=== PATIENT | male | born 1945 | race Caucasian/White ===

== ENCOUNTER → 2018-06-06 15:28 | Outpatient (CLI) | payer MEDICARE, OTHER, SELFPAY ==
--- NOTE | 2018-06-06 | DI.RAD.S_ITS ---
PROCEDURE: XR CHEST 2V INDICATIONS: COUGH TECHNIQUE: 2 views of the chest were acquired. COMPARISON: [facility], CR, XR CHEST 2VW, 09/13/2016, 15:51. FINDINGS: Surgical changes and devices: None. Lungs and pleura: There is a left basilar scars or atelectasis. No pleural effusions or pneumothorax. Mediastinum: Mediastinal contours are normal. Heart size is normal. Bones and chest wall: No suspicious bony abnormalities. Soft tissues appear unremarkable. Scoliosis. Degenerative changes seen thoracic and upper lumbar spine. 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 IMPRESSION: Left basilar scars or atelectasis. Dictated by: Rey Alejandro M.D. on 06/06/2018 at 16:51 Approved by: Rey Alejandro M.D. on 06/06/2018 at 16:52
== END ==
PROVIDERS: PCP Family Medicine; Visit Provider Family Medicine
DX: J15.9 Unspecified bacterial pneumonia (principal); R05 Cough
CPT/HCPCS: 71046

== ENCOUNTER → 2018-06-28 15:23 | Outpatient (CLI) | payer MEDICARE, OTHER, SELFPAY ==
--- NOTE | 2018-06-28 | DI.RAD.S_ITS ---
PROCEDURE: XR CHEST 2V INDICATIONS: PNEUMONIA TECHNIQUE: 2 views of the chest were acquired. COMPARISON: [facility], CR, XR CHEST 2V, 06/06/2018, 15:36. FINDINGS: Surgical changes and devices: None. Lungs and pleura: Lungs are clear. No pleural effusions or pneumothorax. Mediastinum: Mediastinal contours are normal. Heart size is normal. Bones and chest wall: No suspicious bony abnormalities. Soft tissues appear unremarkable. IMPRESSION: Normal for age, source of current pneumonia symptoms is not seen. Dictated by: Ankush Gary M.D. on 06/28/2018 at 15:57 Approved by: Ankush Gary M.D. on 06/28/2018 at 15:57
== END ==
PROVIDERS: Family Provider Family Medicine; PCP Family Medicine; Visit Provider Family Medicine
DX: J18.9 Pneumonia, unspecified organism (principal)
CPT/HCPCS: 71046

== ENCOUNTER 2019-05-18 13:37 | Emergency (ER) | payer MEDICARE, OTHER, SELFPAY ==
[2019-05-18 14:04] VITALS: BP 130/75; PULSE 68; RESP 18; TEMP 36.8; O2SAT 96; BMI 25.1
--- NOTE | 2019-05-18 14:11 | DI.US.S_ITS ---
PROCEDURE: US PERIPH VENOUS LOW EXTREM LT INDICATIONS: LEFT FOOT SWELLING NO INJURY TECHNIQUE: Real-time imaging, as well as color and pulse Doppler interrogation, were performed of the lower extremity deep veins from the inguinal ligament to the popliteal fossa. COMPARISON: None. FINDINGS: The common femoral, femoral and popliteal veins are normally compressible, and free of intraluminal thrombus. Color and pulse Doppler demonstrate normal phasic intraluminal flow. There is normal augmentation response to distal compression maneuver. Targeted sonographic imaging of the foot at the site of the patient's area of concern demonstrates fluid surrounding one of the tendons near the level of the ankle. The location is not clear based on the provided images. IMPRESSION: 1. No evidence of deep vein thrombosis of the left lower extremity. 2. Probable tenosynovitis involving one of the tendons at the site of the patient's area of pain involving the left foot. MRI is recommended for further evaluation. Dictated by: Jessee Beal M.D. on 05/18/2019 at 13:54 Approved by: Jessee Beal M.D. on 05/18/2019 at 13:56
--- NOTE | 2019-05-18 20:02 | ED.EXTPRO ---
HPI - Extremity Problem <DEDE Meraz - Last Filed: 05/18/19 20:05> General Chief complaint: Extremity Problem,Nontraumatic Stated complaint: left foot is painful Time Seen by Provider: 05/18/19 14:10 Source: patient Mode of arrival: Ambulatory Limitations: no limitations History of Present Illness HPI Narrative: The patient is a 73-year-old male nonsmoker with history of DVT who presents with a chief complaint of foot and ankle pain. He states he has a history of foot and ankle pain for which is seeing his primary care provider as well as Orthopedics. He presents in a walking boot today. He is concerned as he has a history of DVT mode of his lower extremities. He denies any chest pain, shortness of breath. He has not taken anything to feel better. He states that he has an appointment with Ortho soon but he is worried about a blood clot and would like an ultrasound to rule out DVT Related Data Home Medications Medication Instructions Recorded Confirmed [SUPER BETA COMPLEX] 1 cap PO DAILY #0 08/11/11 cholecalciferol (vitamin D3) 2,000 unit PO DAILY #0 08/11/11 [Vitamin D3] lxminlee-myi-OD-lycopen-lutein 1 tab PO DAILY #0 08/11/11 05/18/19 [Centrum Silver] saw palmetto 1 cap PO DAILY #0 08/11/11 05/18/19 acyclovir 400 mg PO DAILY 05/18/19 05/18/19 fluticasone propionate 1 spray INTRANASAL DIRECTED 05/18/19 05/18/19 methylphenidate HCl 10 mg PO TID 05/18/19 05/18/19 methylphenidate HCl 20 mg PO BID 05/18/19 05/18/19 naproxen 500 mg PO BID 05/18/19 05/18/19 omeprazole 20 mg PO DAILY 05/18/19 05/18/19 tadalafil 20 mg PO DAILY PRN 05/18/19 05/18/19 Previous Rx's Medication Instructions Recorded prednisone 50 mg PO BID #5 tab 05/18/19 Allergies Allergy/AdvReac Type Severity Reaction Status Date / Time No Known Drug Allergies Allergy Verified 05/18/19 14:03 Review of Systems <DEDE Meraz - Last Filed: 05/18/19 20:05> Review of Systems Narrative: GENERAL: Denies chills, fatigue, malaise, fever, sweats. HEENT: Denies sinus pain, ear pain, sore throat, difficulty swallowing, dizziness. RESPIRATORY: Denies dyspnea, cough, wheezing, hemoptysis, sputum. CARDIOVASCULAR: Denies chest pain, palpitations, orthopnea, edema, GASTROINTESTINAL: Denies nausea, vomiting, abdominal pain, diarrhea, constipation, melena. : Denies dysuria, frequency, incontinence, hematuria, urinary retention. MUSCULOSKELETAL: See HPI SKIN: See HPI NEUROLOGIC: Denies weakness, headache, numbness, change in speech, confusion, seizures, incoordination. PSYCHIATRIC: No concerning psychosocial issues. 12 point review of systems is negative except for those stated above Patient History <DEDE Meraz - Last Filed: 05/18/19 20:05> Social History Smoking Status: Never smoker Smoking Status: Never smoker Substance Use Type: does not use Exam <DEDE Meraz - Last Filed: 05/18/19 20:05> Narrative Exam Narrative: GENERAL: This is a well-nourished, well-developed patient, in no acute distress HEAD: Atraumatic. Normocephalic. No temporal or scalp tenderness. EYES: Pupils equal round and reactive. Extraocular motions intact. No scleral icterus. No injection or drainage. ENT: Nose without bleeding, purulent drainage or septal hematoma. Throat without erythema, tonsillar hypertrophy or exudate. Uvula midline. Airway patent. NECK: Trachea midline. No JVD or lymphadenopathy. Supple, nontender, no meningeal signs. CARDIOVASCULAR: Regular rate and rhythm RESPIRATORY: Clear to auscultation. Breath sounds equal bilaterally. No wheezes, rales, or rhonchi. No cough. No increased respiratory effort. No accessory muscle use. GASTROINTESTINAL: Abdomen soft, non-tender, nondistended. No hepato-splenomegaly, or palpable masses. No guarding. EXTREMITIES: Diffuse pain to palpation left lower leg. Positive pedal pulses. Slight ecchymosis noted distal to medial malleolus. BACK: Nontender without deformity or crepitance. No flank tenderness. NEURO: AOx3. Interactive. Age appropriate. SKIN: See extremity exam Initial Vital Signs Initial Vital Signs: Vital Signs Temperature 98.3 F 05/18/19 14:04 Pulse Rate 68 05/18/19 14:04 Respiratory Rate 18 05/18/19 14:04 Blood Pressure 130/75 05/18/19 14:04 Pulse Oximetry 96 05/18/19 14:04 <Dianna Jimenes DO - Last Filed: 05/30/19 18:42> Initial Vital Signs Initial Vital Signs: Vital Signs Temperature 98.3 F 05/18/19 14:04 Pulse Rate 68 05/18/19 14:04 Respiratory Rate 18 05/18/19 14:04 Blood Pressure 130/75 05/18/19 14:04 Pulse Oximetry 96 05/18/19 14:04 Course <DEDE Meraz - Last Filed: 05/18/19 20:05> Orders Ordered: ED Orders 05/18/19 14:11 US periph venous low extrem lt Stat Vital Signs Vital signs: Vital Signs - 8 hr 05/18/19 14:04 Temperature 98.3 F Pulse Rate 68 Respiratory Rate 18 Blood Pressure 130/75 Pulse Oximetry 96 <Dianna Jimenes DO - Last Filed: 05/30/19 18:42> Orders Ordered: ED Orders 05/18/19 14:11 US periph venous low extrem lt Stat Vital Signs Vital signs: Vital Signs - 8 hr 05/18/19 14:04 Temperature 98.3 F Pulse Rate 68 Respiratory Rate 18 Blood Pressure 130/75 Pulse Oximetry 96 MDM - Extremity (Nontraumatic) <DEDE Meraz - Last Filed: 05/18/19 20:05> Imaging Data US - DVT: Radiologist's Impression: [address] [address] Ultrasound Report Signed Patient: Dylan Keith TMR#: [id number] : 6Acct:[id number] Age/Sex: 73 / MDate of Service: 05/18/19 Loc: ED Accession Number: [id number] Procedure: US periph venous low extrem lt Ordering Provider: Dianna Malone PROCEDURE: US PERIPH VENOUS LOW EXTREM LT INDICATIONS: LEFT FOOT SWELLING NO INJURY TECHNIQUE: Real-time imaging, as well as color and pulse Doppler interrogation, were performed of the lower extremity deep veins from the inguinal ligament to the popliteal fossa. COMPARISON: None. FINDINGS: The common femoral, femoral and popliteal veins are normally compressible, and free of intraluminal thrombus. Color and pulse Doppler demonstrate normal phasic intraluminal flow. There is normal augmentation response to distal compression maneuver. Targeted sonographic imaging of the foot at the site of the patient's area of concern demonstrates fluid surrounding one of the tendons near the level of the ankle. The location is not clear based on the provided images. IMPRESSION: 1. No evidence of deep vein thrombosis of the left lower extremity. 2. Probable tenosynovitis involving one of the tendons at the site of the patient's area of pain involving the left foot. MRI is recommended for further evaluation. Dictated by: Jessee Beal M.D. on 05/18/2019 at 13:54 Approved by: Jessee Beal M.D. on 05/18/2019 at 13:56 MDM Narrative Medical decision making narrative: The patient is a 73-year-old male who presents with chief complaint of DVT of his left lower extremity. Ultrasound is negative for DVT. Does illustrate possible tenosynovitis. Discussed at length the importance of following up with primary care provider as well as Orthopedics. Discussed use of steroid burst as per Dr Jimenes. Patient is in accordance. Discussed at length coming back to ER for acute concerns such as concern of blood clots, heart attack stroke. Patient has no questions or concerns upon discharge and states understanding of return precautions as well as follow-up care. Discharge Plan Departure Patient Disposition: Home Clinical Impression: Leg pain Qualifiers: Laterality: left Qualified Code(s): M79.605 - Pain in left leg Discharge Date/Time: 05/18/19 18:06 Instructions: How To Perform RICE (Rest, Ice, Compress, Elevate), DI for Leg Pain Activity Restrictions/Additional Instructions: Your ultrasound today did not show any evidence of blood clot in your leg. It does show concern for tenosynovitis. I've sent a prescription of prednisone into [facility] in [place]. Please follow-up with primary care provider as well as her orthopedist. Please come back to the emergency department for any acute concerns such as chest pain, shortness of breath etc. concern of clots Prescriptions: New prednisone 50 mg tablet 50 mg PO BID Qty: 5 RF: 0 No Action Centrum Silver 0.4-300-250 mg-mcg-mcg Tablet 1 tab PO DAILY Qty: 0 RF: 0 cholecalciferol (vitamin D3) [Vitamin D3] 2,000 unit Tablet 2,000 unit PO DAILY Qty: 0 RF: 0 saw palmetto 1 cap PO DAILY Qty: 0 RF: 0 [SUPER BETA COMPLEX] 1 cap PO DAILY Qty: 0 RF: 0 methylphenidate HCl 10 mg tablet 10 mg PO TID RF: 0 acyclovir 800 mg tablet 400 mg PO DAILY RF: 0 omeprazole 20 mg capsule,delayed release(DR/EC) 20 mg PO DAILY RF: 0 fluticasone propionate 50 mcg/actuation spray,suspension 1 spray INTRANASAL DIRECTED RF: 0 naproxen 500 mg tablet 500 mg PO BID RF: 0 methylphenidate HCl 20 mg capsule,ER biphasic 50-50 20 mg PO BID RF: 0 tadalafil 20 mg tablet 20 mg PO DAILY PRN (Reason: Erectile Dysfunction) RF: 0 Referrals: Thad Aceves MD [Primary Care Provider] -
== END 2019-05-18 18:06 | disposition home or self-care (01) ==
PROVIDERS: Emergency Provider Nurse Practitioner Family; PCP Family Medicine
DX: M79.672 Pain in left foot (principal); M25.572 Pain in left ankle and joints of left foot
CPT/HCPCS: 93971; 99283

== ENCOUNTER → 2019-05-26 14:32 | Outpatient (CLI) | payer MEDICARE, OTHER, SELFPAY ==
--- NOTE | 2019-05-26 | DI.MRI.S_ITS ---
PROCEDURE: MR ANKLE LT WO CON INDICATIONS: Suspected tibialis anterior injury. TECHNIQUE: Noncontrast sagittal T1 spin echo and T2 fast spin echo with fat saturation, axial proton density fast spin echo and T2 fast spin echo with fat saturation, coronal T1 spin echo and T2 fast spin echo with fat saturation through the ankle/hindfoot. COMPARISON: [facility] [place], CR, XR FOOT 3+ VIEWS LEFT, 03/21/2019, 10:47. FINDINGS: Image quality: There's mild inhomogeneous fat saturation. Bones and joints: No bone marrow contusions or fractures. No hindfoot coalitions. There is mild cartilage thinning along the tibiotalar joint with chondral fissuring and small foci of subchondral edema. No displaced or unstable osteochondral lesions. No pathologic joint effusions. Medial structures: The posterior tibialis, flexor digitorum longus, and flexor hallucis longus tendons are intact. There is minimal tenosynovial fluid along the posterior tibialis tendon. The posterior tibial neurovascular bundle appears normal within the tarsal tunnel, without extrinsic mass effect. The deltoid and spring ligament components appear intact. Lateral structures: The anterior talofibular, calcaneofibular, and posterior talofibular ligaments appear intact. More superiorly, the anterior and posterior tibiofibular ligaments also appear intact, as is the intermalleolar ligament. The tibiofibular syndesmosis is normal in width at 2 mm or less. The peroneus longus and brevis tendons demonstrate normal location and morphology. Adjacent bony peroneal tubercle and retrotrochlear prominence are normal in size. The sinus tarsi demonstrates preserved fatty signal. The calcaneonavicular and calcaneocuboid components of the bifurcate ligament appear intact. The dorsal calcaneocuboid ligament appears intact. Anterior structures: There is thickening of the tibialis anterior tendon with intrasubstance heterogeneous signal consistent with tendinopathy. There is rupture of the tendon distally with retraction to the level of the mid foot dorsal to the navicular. There is associated mild edema and small amount of fluid. The extensor hallucis longus and extensor digitorum longus tendons appear intact. The dorsal talonavicular ligament appears intact. Posterior and plantar structures: Achilles tendon is intact. There is mild thickening of the central cord of the plantar fascia proximally with mild edema and minimal partial tearing at its origin on the calcaneus. Findings compatible with plantar fasciitis. This is associated mild bone marrow edema within the plantar aspect of the calcaneus which demonstrates a small enthesophyte. No abductor digiti quinti muscle atrophy to suggest Barber neuropathy. IMPRESSION: 1. Rupture of the tibialis anterior tendon distally with retraction to the level of the navicular. There is thickening of the tendon with mild intrasubstance heterogeneous signal compatible with tendinopathy. 2. Mild degeneration of the tibiotalar joint with small foci of subchondral edema. No displaced or unstable osteochondral fragment. 3. Plantar fasciitis with minimal partial tearing at the origin of the central cord with mild associated reactive bone marrow edema in the calcaneus at the origin of the plantar fascia. Dictated by: Tito Harper M.D. on 05/28/2019 at 9:38 Approved by: Tito Harper M.D. on 05/28/2019 at 9:48
== END ==
PROVIDERS: Family Provider Family Medicine; PCP Family Medicine; Visit Provider Podiatrist
DX: S96.812A Strain of other specified muscles and tendons at ankle and foot level, left foot, initial encounter (principal); M19.072 Primary osteoarthritis, left ankle and foot; M72.2 Plantar fascial fibromatosis; X58.XXXA Exposure to other specified factors, initial encounter
CPT/HCPCS: 73721

== ENCOUNTER → 2019-07-17 12:24 | Outpatient (CLI) | payer MEDICARE, OTHER, SELFPAY ==
--- NOTE | 2019-07-17 | DI.CT.S_ITS ---
PROCEDURE: CT SOFT TISSUE NECK WO/W CON INDICATIONS: Otalgia, left ear TECHNIQUE: Before and after the administration of intravenous contrast, 2.0 mm axial sections acquired through the neck and down to the jared. Additional 2.0 mm coronal and sagittal reformats were generated of the contrast enhanced images. For radiation dose reduction, the following was used: automated exposure control. COMPARISON: None. FINDINGS: Image quality: Excellent. Lymph nodes: No enlarged lymph nodes seen throughout the neck. Vessels: Visualized vasculature appears patent. Neck spaces: The oropharynx, nasopharynx, and pharynx demonstrate no mucosal lesions. The vocal cords, false vocal cords, pyriform sinuses, epiglottis, vallecula, and tongue base all appear normal. Extramucosal spaces appear unremarkable. Glands: The parotid and submandibular glands appear normal. No calcified stones identified in the parotid or submandibular glands. No calcified stones identified along the course of the parotid or submandibular ducts. Normal. Miscellaneous: Visualized lungs appear clear. Superficial soft tissues appear normal. Bones: No suspicious bony lesions. Spine degenerative disc disease and facet arthropathy. Visualized sinuses and mastoids appear unremarkable. Temporomandibular joints are within normal limits without significant osteoarthritic degenerative change. IMPRESSION: 1. No sialolithiasis. 2. Mastoids are clear. 3. Temporomandibular joints are within normal limits with no significant osteoarthritic degenerative change. 4. No lymphadenopathy based on size criteria 5. No mucosal based mass. 6. No inflammatory change or abscess. 7. Cervical spine degenerative disc disease and facet arthropathy. Dictated by: Caro Barr MD, PhD on 07/17/2019 at 17:15 Approved by: Caro Barr MD, PhD on 07/17/2019 at 17:23
[2019-07-17 12:59] LABS: Blood Urea Nitrogen 20 mg/dL (9-20); Estimated Glomerular Filt Rate > 60.0 mL/min (>60)
== END ==
PROVIDERS: Family Provider Family Medicine; PCP Family Medicine; Referring Provider Otolaryngology; Visit Provider Otolaryngology
DX: H92.02 Otalgia, left ear (principal); M50.30 Other cervical disc degeneration, unspecified cervical region; M47.812 Spondylosis without myelopathy or radiculopathy, cervical region
CPT/HCPCS: 36415; 70492; 82565; 84520; Q9967

== ENCOUNTER → 2020-04-17 08:27 | Outpatient (CLI) | payer MEDICARE, OTHER, SELFPAY ==
--- NOTE | 2020-04-17 | DI.RAD.S_ITS ---
PROCEDURE: XR CHEST 2V INDICATIONS: Nonspecific reaction to tuberculin skin test without active TECHNIQUE: 2 views of the chest were acquired. COMPARISON: [facility], CR, XR RIBS UNILAT 2VW RT, 09/29/2016, 12:24. [facility], CR, XR CHEST 2VW, 09/13/2016, 15:51. [facility], CR, XR CHEST 2V, 06/06/2018, 15:36. [facility], CR, XR CHEST 2V, 06/28/2018, 15:38. FINDINGS: Surgical changes and devices: None. Lungs and pleura: Lungs are clear. No pulmonary nodules are detected. No cavitary lesions are seen. No infiltrates. No pleural effusions or pneumothorax. Mediastinum: The cardiac contours are within normal limits. The aorta demonstrates calcification and tortuosity. Bones and chest wall: Mild dextroconvex scoliotic curvature is seen. This study is performed with the benefit of general anesthesia. Please see the anesthesia record for additional detail. No suspicious bony abnormalities. Soft tissues appear unremarkable. IMPRESSION: Unremarkable chest for age, without findings of active or remote pulmonary tuberculosis. Dictated by: Darrel Catherine M.D. on 04/17/2020 at 9:25 Approved by: Darrel Catherine M.D. on 04/17/2020 at 9:26
== END ==
PROVIDERS: Family Provider Family Medicine; PCP Family Medicine; Referring Provider Family Medicine; Visit Provider Family Medicine
DX: R76.11 Nonspecific reaction to tuberculin skin test without active tuberculosis (principal); I10 Essential (primary) hypertension
CPT/HCPCS: 71046

== ENCOUNTER → 2020-07-29 17:48 | Outpatient (CLI) | payer MEDICARE, OTHER, SELFPAY ==
--- NOTE | 2020-07-29 | DI.RAD.S_ITS ---
PROCEDURE: XR CERVICAL SPINE 2V OR 3V INDICATIONS: Cervicalgia TECHNIQUE: 3 view(s) of the cervical spine were acquired. COMPARISON: [facility], CR, XR CERVICAL SPINE 2 OR 3VW, 09/13/2016, 15:51. FINDINGS: Bones: No acute fracture identified, although evaluation limited by advanced discogenic changes. Grade 1 anterolisthesis of C4 on C5 and C6 on C7. Grade 2 anterolisthesis of C7 on T1. Straightening of the normal lordotic curvature. Multilevel degenerative endplate sclerosis and spurring. Diffuse facet arthropathy. Severe narrowing of the C3-C4 and C5-C6 disc spaces. Moderate narrowing of the remaining cervical disc spaces except at C2-C3. Soft tissues: No prevertebral soft tissue swelling. IMPRESSION: Interval progression of anterolisthesis of C7 on T1 since 09/13/16 otherwise grossly unchanged examination. Dictated by: Robert Pendleton M.D. on 07/30/2020 at 10:01 Approved by: Robert Pendleton M.D. on 07/30/2020 at 10:03
--- NOTE | 2020-07-29 | DI.RAD.S_ITS ---
PROCEDURE: XR SHOULDER LT MIN 2V INDICATIONS: Cervicalgia TECHNIQUE: 3 views of the shoulder were acquired. COMPARISON: [facility], [place], NM BONE SCAN WHOLE BODY, 09/26/2017, 12:42. [facility], CR, SHOULDER MINIMUM 2 VIEW LEFT, 04/28/2012, 16:58. [facility], CR, XR CHEST 2V, 06/28/2018, 15:38. [facility], CR, XR CHEST 2V, 06/06/2018, 15:36. [facility], CR, XR CHEST 2VW, 09/13/2016, 15:51. [facility], CR, SHOULDER MIN 2VW (RT), 10/11/2013, 9:44. FINDINGS: Bones: Severe left shoulder joint degeneration. No fracture. Scattered degenerative subchondral sclerosis and spurring. A nonspecific subcentimeter lytic lesion involving the proximal left humeral diametaphysis. This appears new since 04/28/12. There is surrounding reactive sclerosis. Soft tissues: No suspicious soft tissue calcifications. IMPRESSION: A lytic lesion involving the proximal left humerus is technically nonspecific. Recommend further evaluation with contrast enhanced MRI to assess for possibility of metastatic or malignant etiologies, chronic/indolent infection is also in the differential. Severe left shoulder joint degeneration Dictated by: Robert Pendleton M.D. on 07/30/2020 at 10:04 Approved by: Robert Pendleton M.D. on 07/30/2020 at 10:09
== END ==
PROVIDERS: Family Provider Family Medicine; PCP Family Medicine; Referring Provider Family Medicine; Visit Provider Family Medicine
DX: M54.2 Cervicalgia (principal); M43.13 Spondylolisthesis, cervicothoracic region; M47.812 Spondylosis without myelopathy or radiculopathy, cervical region; M48.02 Spinal stenosis, cervical region; M19.012 Primary osteoarthritis, left shoulder; M89.9 Disorder of bone, unspecified
CPT/HCPCS: 72040; 73030

== ENCOUNTER → 2020-08-30 08:44 | Outpatient (CLI) | payer MEDICARE, OTHER, SELFPAY ==
--- NOTE | 2020-08-30 08:46 | DI.MRI.S_ITS ---
PROCEDURE: MR LUMBAR SPINE WO CON INDICATIONS: Spinal stenosis, lumbar region with neurogenic cla TECHNIQUE: Noncontrast sagittal T1 spin echo and T2 fast echo, coronal T2, sagittal STIR, axial T1 and T2 fast spin echo through the lumbar spine. COMPARISON: [facility] [place], CR, XR LUMBAR SPINE WITH OLBIQUES PLUS FLEXION EXTENSION, 08/18/2020, 14:50. FINDINGS: Image quality: Excellent. Alignment and Curvature: 5 lumbar type vertebral bodies are present by plain film. There is loss of normal lumbar lordosis. There is mild, grade 1 retrolisthesis of L1 on L2, L2 on L3, and L4 on L5. Moderate leftward curvature of the mid/lower lumbar spine. Moderate rightward curvature of the upper lumbar spine. Bone Marrow: Marrow is of normal overall signal. No acute vertebral body compression fractures. Moderate reactive signal within the endplates adjacent to the T12-L1, L1-L2, L2-L3, L4-L5, and L5-S1 intervertebral discs. Mild reactive signal within the endplates adjacent to the L3-L4 intervertebral disc. Spinal Cord: Conus medullaris terminates at the L1-L2 disc space level. Visualized cord demonstrates normal signal and size. Paraspinous Soft Tissues: No paravertebral masses. T12-L1: Moderate disc height loss and desiccation. Moderate diffuse disc bulge. Mild facet and ligamentum flavum hypertrophy. Mild canal stenosis. Mild right and moderate left foraminal stenosis. L1-L2: Severe disc height loss and desiccation. Mild diffuse disc bulge with superimposed left far lateral protrusion/osteophyte. Mild bilateral facet and ligamentum flavum hypertrophy. Mild canal stenosis. Severe left and mild right foraminal stenosis. Left L1 nerve root compression. L2-L3: Moderate disc height loss and desiccation. Moderate diffuse disc bulge/osteophyte. Mild facet and ligamentum flavum hypertrophy. Mild epidural lipomatosis. Moderate canal stenosis. Moderate right and mild left foraminal stenosis. L3-L4: Moderate disc height loss and desiccation. Mild diffuse disc bulge. Mild facet and ligamentum flavum hypertrophy. Mild epidural lipomatosis. Severe canal stenosis. Moderate right and mild left foraminal stenosis. L4-L5: Moderate disc height loss and desiccation. Mild diffuse disc bulge/osteophyte. Mild facet and ligamentum flavum hypertrophy. Mild canal stenosis. Moderate bilateral foraminal stenosis. L5-S1: Severe disc height loss and desiccation. Mild diffuse disc bulge/osteophyte with superimposed right far lateral protrusion/osteophyte. Mild bilateral facet and ligamentum flavum hypertrophy. Mild canal stenosis. Severe bilateral foraminal stenosis with bilateral L5 nerve root compression. IMPRESSION: 1. Multilevel degenerative disc and facet disease, as well as ligamentum flavum hypertrophy and epidural lipomatosis. 2. Thoracolumbar spinal curvature as above. 3. Multilevel canal stenoses, worst at L3-L4, where there is severe canal stenosis. Moderate canal stenosis at L2-L3. 4. Multilevel foraminal stenoses, worst at L1-L2 and L5-S1 where there is associated intraforaminal nerve root compression. Recommend correlation with clinical symptoms to ascertain relevance of these findings. Dictated by: Jennifer Crowe M.D. on 09/01/2020 at 9:17 Approved by: Jennifer Crowe M.D. on 09/01/2020 at 9:23
== END ==
PROVIDERS: Family Provider Family Medicine; PCP Family Medicine; Referring Provider Physical Medicine & Rehabilitation Pain Medicine; Visit Provider Physical Medicine & Rehabilitation Pain Medicine
DX: M48.062 Spinal stenosis, lumbar region with neurogenic claudication (principal); M48.07 Spinal stenosis, lumbosacral region; M51.36 Other intervertebral disc degeneration, lumbar region; M51.37 Other intervertebral disc degeneration, lumbosacral region; E88.2 Lipomatosis, not elsewhere classified
CPT/HCPCS: 72148

== ENCOUNTER → 2021-03-13 11:01 | Outpatient (CLI) | payer MEDICARE, OTHER, SELFPAY ==
--- NOTE | 2021-03-13 | DI.CT.S_ITS ---
PROCEDURE: CT ABDOMEN PELVIS W CON INDICATIONS: Liver lesion TECHNIQUE: After the administration of oral and intravenous contrast, axial sections were acquired from the lung bases to the pubic symphysis. Coronal and sagittal reformats were performed. For radiation dose reduction, the following was used: automated exposure control, adjustment of mA and/or kV according to patient size. COMPARISON:[facility], CT, ABDOMEN/PELVIS WITH CONTRAST, 02/12/2013, 13:12. FINDINGS: ABDOMEN: Lung bases: No acute findings. Heart: Trace pericardial fluid. Liver: Hypodense lesion which measuring 1.6 x 3.1 cm, with peripheral nodular enhancement presumably hemangioma which is unchanged since 2012. Subcentimeter hepatic foci are statistically cysts or hemangiomas, although technically too small to characterize accurately and therefore nonspecific. Gallbladder: Gallstone is present measuring approximately 1.5 cm. Gallbladder is decompressed. No definite pericholecystic inflammatory changes Bile ducts: Normal. Pancreas: Normal. Spleen: Normal. Adrenals: Normal. Kidneys and Ureters: Normal. Stomach and duodenum: Normal. Bowel: Colonic diverticulosis is present. The rectum is largely decompressed. There is moderate stool throughout the colon. Normal appendix. Other: No free fluid or air. Abdominal nodes: Normal. Aorta and IVC: Normal in size. Ventral wall: Normal. PELVIS: Bladder: Normal. Inguinal region: No hernia. Pelvic nodes: Normal. Bones: No suspicious bony lesions. No vertebral body compression fractures. Severe diffuse multilevel spondylosis and facet arthropathy. Scoliosis also noted as before. IMPRESSION: Overall, grossly unchanged appearance presumed hepatic hemangioma since 2012. Incidentally noted large gallstone. Additional chronic and incidental findings as above. Dictated by: Robert Pendleton M.D. on 03/13/2021 at 14:09 Approved by: Robert Pendleton M.D. on 03/13/2021 at 14:31
[2021-03-13 11:27] LABS: BUN Creatinine Ratio 19.7 (6-22); Blood Urea Nitrogen 15 mg/dL (9-20); Estimated Glomerular Filt Rate > 60.0 mL/min (>60)
== END ==
PROVIDERS: Family Provider Family Medicine; PCP Family Medicine; Referring Provider Family Medicine; Visit Provider Family Medicine
DX: K76.89 Other specified diseases of liver (principal); K80.20 Calculus of gallbladder without cholecystitis without obstruction
CPT/HCPCS: 36415; 74177; 82565; 84520

== ENCOUNTER → 2021-06-22 11:10 | Outpatient (CLI) | payer MEDICARE, OTHER, SELFPAY ==
--- NOTE | 2021-06-22 | DI.CT.S_ITS ---
PROCEDURE: CT LUMBAR SPINE WO CON INDICATIONS: Spinal stenosis, lumbar region with neurogenic claudication TECHNIQUE: Noncontrast 3 mm thick sections acquired from the T12 level to the sacrum. Sagittal and coronal reformats were constructed. For radiation dose reduction, the following was used: automated exposure control. COMPARISON: [facility], MR, MR LUMBAR SPINE WO CON, 08/30/2020, 8:56. [facility] [place], CR, XR LUMBAR SPINE WITH OLBIQUES PLUS FLEXION EXTENSION, 08/18/2020, 14:50. FINDINGS: Image quality: Excellent. Bones: There is mild L2-L3 retrolisthesis. There is approximately 30? of convex left lumbar spine scoliosis. No acute vertebral body compression fractures. No suspicious lytic or blastic bony lesions. No pars defects. T12-L1: Loss of disc height. Vacuum disc phenomenon. T12 and L1 endplate irregularity, subchondral sclerosis and subchondral cyst formation adjacent to the disc space. Mild bilateral facet hypertrophy. Mild narrowing of the central canal. Mild right and severe left neural foraminal narrowing with compression of the exiting left T12 nerve root. L1-L2: Loss of disc height. Partial L1-L2 ankylosis. Mild bilateral facet hypertrophy. Mild narrowing of the central canal. Mild right and moderate to severe left neural foraminal narrowing with slight compression of the exiting left L1 nerve root. L2-L3: Loss of disc height. Vacuum disc phenomenon. Endplate osteophytosis. Mild bilateral facet hypertrophy. Moderate narrowing of the central canal. Moderate right and [id number] left neural foraminal narrowing. No neural compression. L3-L4: Loss of disc height. Vacuum disc phenomenon. Endplate osteophytosis. Moderate bilateral facet hypertrophy. Mild ligamentum flavum hypertrophy. Severe narrowing of the central canal with probable compression of the nerve roots of the cauda equina. Moderate bilateral neural foraminal narrowing. L4-L5: Loss of disc height. Vacuum disc phenomenon. Endplate osteophytosis. Mild bilateral facet hypertrophy. Moderate ligamentum flavum hypertrophy. Moderate narrowing of the central canal. Severe right and moderate left neural foraminal narrowing with compression of the exiting right L4 nerve root. L5-S1: Loss of disc height. Vacuum disc phenomenon. Endplate osteophytosis. Mild right and moderate left facet hypertrophy. Mild ligamentum flavum hypertrophy. Moderate narrowing of the central canal. Severe bilateral neural foraminal narrowing with compression of the exiting L5 nerve roots. Soft tissues: No retroperitoneal masses or hematomas. Visualized aorta is normal in caliber. Scattered atherosclerotic calcifications involving the visualized abdominal and pelvic vasculature. IMPRESSION: 1. Convex left scoliosis. 2. Multilevel degenerative disc disease. 3. Multilevel facet arthropathy. 4. Severe L3-L4 central canal narrowing with probable compression of the traversing nerve roots of the cauda equina. 5. Severe left T12-L1 neural foraminal narrowing with compression of the exiting left T12 nerve root. Moderate to severe left L1-L2 neural foraminal narrowing with slight compression of the exiting left L1 nerve root. Severe right L4-L5 neural foraminal narrowing with compression of the exiting right L4 nerve root. Severe bilateral L5-S1 neural foraminal narrowing with compression of the exiting bilateral L5 nerve roots. Dictated by: Caro Barr MD, PhD on 06/22/2021 at 12:55 Approved by: Caro Barr MD, PhD on 06/22/2021 at 13:24
== END ==
PROVIDERS: Family Provider Family Medicine; PCP Family Medicine; Referring Provider Orthopaedic Surgery Orthopaedic Surgery of the Spine; Visit Provider Orthopaedic Surgery Orthopaedic Surgery of the Spine
DX: M48.062 Spinal stenosis, lumbar region with neurogenic claudication (principal); M48.07 Spinal stenosis, lumbosacral region; M41.86 Other forms of scoliosis, lumbar region; M51.36 Other intervertebral disc degeneration, lumbar region; M51.37 Other intervertebral disc degeneration, lumbosacral region; M47.816 Spondylosis without myelopathy or radiculopathy, lumbar region; M47.817 Spondylosis without myelopathy or radiculopathy, lumbosacral region
CPT/HCPCS: 72131

== ENCOUNTER → 2021-07-28 16:12 | Outpatient (CLI) | payer MEDICARE, OTHER, SELFPAY ==
[2021-07-28 17:41] LABS: Add Manual Diff / Slide Review NO; Basophils Absolute Auto 0 /uL (0-100); Basophils Percent Auto 0.6 % (0-2); Eosinophils Absolute Auto 100 /uL (0-450); Eosinophils Percent Auto 1.4 % (2-4); Hematocrit 42.4 % (41-53); Hemoglobin 14.4 g/dL (13.5-17.5); Lymphocytes Absolute Auto 1100 /uL (1100-4500); Lymphocytes Percent Auto 16.4 % (25-40); Mean Corpuscular HGB Conc 33.9 % (30-36); Mean Corpuscular Hemoglobin 29.7 PG (26-34); Mean Corpuscular Volume 87.6 fL (80-100); Monocytes Absolute Auto 400 /uL (0-900); Monocytes Percent Auto 6.8 % (3-14); Neutrophils Absolute Auto 4800 /uL (1500-7000); Neutrophils Percent Auto 74.8 % (50-75); Platelet Count 257 X10^3/uL (150-400); Red Blood Cell Count 4.84 X10^6/uL (4.5-5.9); Red Cell Distribution Width 15.1 % (11.6-14.8); White Blood Cell Count 6.4 X10^3/uL (4.5-11.0)
[2021-07-28 17:59] LABS: BUN Creatinine Ratio 17.5 (6-22); Blood Urea Nitrogen 14 mg/dL (9-20); Calcium 9.3 mg/dL (8.4-10.2); Carbon Dioxide 24 mmol/L (22-32); Chloride 106 mmol/L (98-107); Estimated Glomerular Filt Rate > 60.0 mL/min (>60); Glucose 118 mg/dL (80-110); HEMOLYSIS < 15 (0-50); Potassium 3.9 mmol/L (3.4-5.1); Sodium 141 mmol/L (137-145)
== END ==
PROVIDERS: Family Provider Family Medicine; PCP Family Medicine; Referring Provider Orthopaedic Surgery Orthopaedic Surgery of the Spine; Visit Provider Orthopaedic Surgery Orthopaedic Surgery of the Spine
DX: Z01.818 Encounter for other preprocedural examination (principal); Z01.812 Encounter for preprocedural laboratory examination
CPT/HCPCS: 36415; 80048; 85025; 93005; 93010

== ENCOUNTER → 2021-08-07 09:31 | Outpatient (CLI) | payer MEDICARE, OTHER, SELFPAY ==
[2021-08-07 11:14] LABS: COVID19 -Nasal RAPID Negative (Negative)
== END ==
PROVIDERS: Family Provider Family Medicine; PCP Family Medicine; Visit Provider Family Medicine Sleep Medicine
DX: Z20.822 Contact with and (suspected) exposure to COVID-19 (principal)
CPT/HCPCS: 87635; C9803

== ENCOUNTER → 2022-03-30 11:54 | Outpatient (CLI) | payer MEDICARE, OTHER, SELFPAY ==
--- NOTE | 2022-03-30 11:55 | DI.CT.S_ITS ---
PROCEDURE: CT UE RT WO CON INDICATIONS: ARTHRITIS BOTH HANDS TECHNIQUE: Noncontrast 1 mm axial sections acquired through the carpal bones, metacarpal bones and phalanges, with coronal and sagittal reformats. [facility]: [facility] [place], CR, XR HAND 3+ VIEWS BILATERAL, 03/15/2022, 13:25. FINDINGS: Image quality: Excellent. Bones: Alignment of right hand and wrist is anatomic. Severe radiocarpal joint osteoarthritic changes are seen with complete loss of joint space, extensive subchondral sclerosis and marginal osteophyte formation. Moderate osteoarthritic changes are noted throughout rest of the hand and wrist joints most notably at 1st CMC joint. Subcortical radiolucent areas with overlying cortical disruption are noted involving distal radius, distal ulnar, throughout carpal bones and at 1st metacarpal base. Similar changes also seen involving 1st, and 2nd metacarpal heads, adjacent 1st and 2nd proximal phalangeal bases and possibly at dorsal aspect of 3rd proximal phalangeal base as well as 1st and 2nd proximal phalangeal heads. No fracture or dislocation. No suspicious bony lesions. Soft tissues: There is no abnormal soft tissue calcifications. No discrete soft tissue mass or drainable fluid collection. No gross full-thickness extensor or flexor tendon ruptures. IMPRESSION: 1. Moderate to severe osteoarthritic changes throughout right hand and wrist joints as described above. Finding is most prominent involving radiocarpal joint and 1st CMC joint. No fracture or dislocation. 2. 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 3. No abnormal soft tissue calcifications. No CT evidence of tenosynovitis or full-thickness tendon rupture. Dictated by: Nabil Shultz M.D. on 03/30/2022 at 15:59 Approved by: Nabil Shultz M.D. on 03/30/2022 at 16:07
--- NOTE | 2022-03-30 11:55 | DI.CT.S_ITS ---
PROCEDURE: CT UE LT WO CON INDICATIONS: ARTHRITIS BOTH HANDS TECHNIQUE: Noncontrast 1 mm axial sections acquired through the carpal bones , metacarpals and phalanges, with coronal and sagittal reformats. [facility] [place], CR, XR HAND 3+ VIEWS BILATERAL, 03/15/2022, 13:25. FINDINGS: Image quality: Excellent. Bones: Moderate to severe osteoarthritic changes are noted throughout left hand and wrist joints most notably at radiocarpal joints and 1st CMC joint with significant joint space narrowing, subchondral sclerosis and marginal osteophyte formation. Extensive subcortical radiolucent areas and overlying cortical defects are noted involving distal radius, ulnar, throughout carpal bones, and 1st metacarpal base, 1st, 2nd, and 4th metacarpal heads as well as 2nd through 4th proximal phalangeal bases and 2nd and 3rd proximal phalangeal heads. Similar changes also noted involving 2nd and 3rd middle phalangeal heads. There is no fracture or dislocation. No evidence of osteonecrosis or suspicious intraosseous lesion. Soft tissues: No significant joint effusion is seen. No abnormal soft tissue calcifications or gross intra-articular loose bodies. No full-thickness extensor or flexor tendon rupture. No obvious fluid distending tendon sheath are noted to suggest tenosynovitis. IMPRESSION: 1. Moderate to severe osteoarthritic changes throughout left hand and wrist joints as above. 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 2. No abnormal soft tissue calcifications. No gross CT evidence of tenosynovitis. No full-thickness extensor or flexor tendon ruptures. Dictated by: Nabil Shultz M.D. on 03/30/2022 at 16:19 Approved by: Nabil Shultz M.D. on 03/30/2022 at 16:23
== END ==
PROVIDERS: Family Provider Family Medicine; PCP Family Medicine; Referring Provider Orthopaedic Surgery; Visit Provider Orthopaedic Surgery
DX: M19.041 Primary osteoarthritis, right hand (principal); M19.042 Primary osteoarthritis, left hand
CPT/HCPCS: 73200

== ENCOUNTER → 2022-04-28 17:12 | Outpatient (CLI) | payer MEDICARE, OTHER, SELFPAY ==
--- NOTE | 2022-04-28 | DI.RAD.S_ITS ---
PROCEDURE: XR FOOT RT MIN 3V INDICATIONS: PAIN IN RIGHT FOOT TECHNIQUE: 3 views of the foot were acquired. COMPARISON: [facility], CR, XR ANKLE RT MIN 3V, 04/28/2022, 17:20. FINDINGS: Bones: No fractures or dislocations. No suspicious bony lesions. Metatarsus adductus and hallux valgus. There is mild degenerative joint disease at the 1st tarsometatarsal joint, 1st metatarsophalangeal joint and multiple interphalangeal joints. Soft tissues: No tibiotalar joint effusion. Achilles tendon appears normal. Soft tissue swelling over the ankle. Please see separate ankle x-ray report. IMPRESSION: 1. Metatarsus adductus and hallux valgus. 2. Degenerative joint disease. Dictated by: Rey Alejandro M.D. on 04/29/2022 at 10:22 Approved by: Rey Alejandro M.D. on 04/29/2022 at 10:31
--- NOTE | 2022-04-28 17:16 | DI.RAD.S_ITS ---
PROCEDURE: XR ANKLE RT MIN 3V INDICATIONS: PAIN IN RIGHT ANKLE/FOOT TECHNIQUE: 3 views of the ankle were acquired. COMPARISON: [facility], CR, XR FOOT RT MIN 3V, 04/28/2022, 17:20. FINDINGS: Bones: There is a small osseous density distal to the lateral malleolus, suspicious for a small avulsion fracture. Corticated ossicles distal to the medial malleolus. No dislocations. Ankle mortise is normally aligned. No suspicious bony lesions. Mild to moderate degenerative joint disease. Soft tissues: Small tibiotalar joint effusion. Achilles tendon appears normal. Soft tissue swelling around the ankle. IMPRESSION: 1. Question avulsion fracture involving lateral malleolus. If clinical symptoms persist or clinical suspicion for pathology is high, a repeat examination in 7-10 days, or advanced imaging such as CT or MRI is suggested for further evaluation. 2. Multiple corticated ossicles over the medial malleolus, likely sequelae of old injury. 3. Fdsi-rv-[id number] degenerative joint disease. Dictated by: Rey Alejandro M.D. on 04/29/2022 at 10:31 Approved by: Rey Alejandro M.D. on 04/29/2022 at 10:33
== END ==
PROVIDERS: Family Provider Family Medicine; PCP Family Medicine; Referring Provider Family Medicine; Visit Provider Family Medicine
DX: M19.071 Primary osteoarthritis, right ankle and foot (principal); M20.11 Hallux valgus (acquired), right foot; M25.571 Pain in right ankle and joints of right foot
CPT/HCPCS: 73610; 73630

== ENCOUNTER → 2022-04-30 12:43 | Outpatient (CLI) | payer MEDICARE, OTHER, SELFPAY ==
--- NOTE | 2022-04-30 | DI.CT.S_ITS ---
PROCEDURE: CT FOOT RIGHT WITHOUT CON INDICATIONS: Pain in right ankle and joints of right foot TECHNIQUE: Noncontrast 1-1.5 mm axial sections acquired from above the tibiotalar joint to the bottom of the calcaneus, with coronal and sagittal reformats. COMPARISON: [facility], CR, XR FOOT RT MIN 3V, 04/28/2022, 17:20. FINDINGS: Image quality: Excellent. Bones: Right foot alignment is anatomic. No acute fracture or dislocation. No metatarsal shaft cortical thickening or periosteal reaction is seen to suggest stress fracture. Osteoarthritic changes are noted throughout right foot more notably in tibiotalar and subtalar joint. No suspicious bony lesion. Radiolucent areas involving weight-bearing portion of talar dome and adjacent tibial plafond concerning for small osteochondral injuries. Soft tissues: There is small tibiotalar and subtalar joint effusion. No abnormal soft tissue calcifications. No gross intra-articular loose bodies. There is no gross full-thickness tendon rupture. No discrete soft tissue mass or drainable fluid collection. IMPRESSION: 1. [id number] right foot osteoarthritis most notably in hindfoot joints. No fracture or dislocation. No CT evidence of metatarsal stress fractures. Suggestion of small osteochondral injuries involving weight-bearing portion of talar dome and adjacent tibial plafond. 2. Mild ankle soft tissue swelling. Small to moderate amount of tibiotalar joint effusion, no calcified intra-articular loose bodies. No abnormal soft tissue calcifications. No full-thickness tendon rupture. Plantar fascia is within normal limits. Dictated by: Nabil Shultz M.D. on 04/30/2022 at 16:39 Approved by: Nabil Shultz M.D. on 04/30/2022 at 16:43
== END ==
PROVIDERS: Family Provider Family Medicine; PCP Family Medicine; Referring Provider Family Medicine; Visit Provider Family Medicine
DX: M19.071 Primary osteoarthritis, right ankle and foot (principal); M25.571 Pain in right ankle and joints of right foot; M79.89 Other specified soft tissue disorders
CPT/HCPCS: 73700

== ENCOUNTER → 2022-07-26 13:45 | Outpatient (CLI) | payer OTHER, SELFPAY ==
--- NOTE | 2022-07-26 14:19 | DI.MRI.S_ITS ---
PROCEDURE: MR ANKLE LT WO CON INDICATIONS: Strain of muscle(s) and tendon(s) of anterior musc TECHNIQUE: Noncontrast sagittal T1 spin echo and T2 fast spin echo with fat saturation, axial proton density fast spin echo and T2 fast spin echo with fat saturation, coronal T1 spin echo and T2 fast spin echo with fat saturation through the ankle/hindfoot. COMPARISON: [facility], MR, MR ANKLE LT WO CON, 05/26/2019, 14:41. FINDINGS: Image quality: Excellent. Bones and joints: [id number] midfoot and hindfoot joint osteoarthritis is seen with joint space narrowing and subchondral sclerosis. No bone marrow contusions or fractures. No hindfoot coalitions. No osteochondral injuries of the talar dome. Small tibiotalar and subtalar joint effusion is noted, no gross loose bodies. Well-defined plantar calcaneal enthesophyte is seen. Medial structures: The posterior tibialis, flexor digitorum longus, and flexor hallucis longus tendons are mildly thickened at the level talonavicular joint with small amount of fluid distending tendon sheath.. The posterior tibial neurovascular bundle appears normal within the tarsal tunnel, without extrinsic mass effect. The deep layer (anterior and posterior tibiotalar ligaments) and superficial layer (tibionavicular, tibiospring, and tibiocalcaneal ligaments) of the deltoid ligament appear normal. The spring ligament components (superomedial calcaneonavicular, medioplantar oblique calcaneonavicular, and inferoplantar longitudinal ligaments) are intact. Lateral structures: The anterior talofibular, calcaneofibular, and posterior talofibular ligaments appear mildly thickened with intrasubstance T2 hyperintense signal. More superiorly, the anterior and posterior tibiofibular ligaments appear intact, as is the intermalleolar ligament. The tibiofibular syndesmosis is normal in width at 2 mm or less. The peroneus longus and brevis tendons are thickened at the level of lateral malleolus tip extending to the level of calcaneocuboid joint with small amount of fluid distending tendon sheath. Adjacent bony peroneal tubercle and retrotrochlear prominence are normal in size. The sinus tarsi demonstrates normal fatty signal, without edema, fibrosis, or cyst formation. Visualized sinus tarsi components (cervical ligament, interosseous talocalcaneal ligament, roots of the inferior extensor retinaculum) appear normal. The calcaneonavicular and calcaneocuboid components of the bifurcate ligament appear intact. The dorsal calcaneocuboid ligament appears intact. Anterior structures: The tibialis anterior tendon is thickened at the level of tibiotalar joint. No tendon rupture is seen on the current study. The, extensor hallucis longus, and extensor digitorum longus tendons appear intact. The dorsal talonavicular ligament appears intact. Posterior and plantar structures: Achilles tendon is intact. Medial and lateral bands of the plantar fascia are of normal thickness. No abductor digiti quinti muscle atrophy to suggest Barber neuropathy. IMPRESSION: 1. Sgkj-iy-ihqbybed midfoot and hindfoot joint osteoarthritis. No fracture or dislocation. No osteochondral injuries of talar dome. Well-defined plantar calcaneal enthesophyte. Small joint effusion, no gross loose bodies. 2. Mildly thickened tibialis anterior tendon at the level of tibiotalar joint suggestive of tendinosis. Tendinosis and low-grade tenosynovitis also seen involving flexor tendons and peroneus tendons as above. No full-thickness tendon rupture. 3. Low-grade sprain/partial-thickness tear involving anterior and posterior talofibular ligaments and calcaneofibular ligament. Medial ankle ligaments are intact. Dictated by: Nabil Shultz M.D. on 07/26/2022 at 15:29 Approved by: Nabil Shultz M.D. on 07/26/2022 at 15:56
== END ==
PROVIDERS: Family Provider Family Medicine; PCP Family Medicine; Referring Provider Orthopaedic Surgery Foot and Ankle Surgery; Visit Provider Orthopaedic Surgery Foot and Ankle Surgery
DX: S86.212A Strain of muscle(s) and tendon(s) of anterior muscle group at lower leg level, left leg, initial encounter (principal); M19.072 Primary osteoarthritis, left ankle and foot; M77.32 Calcaneal spur, left foot; S93.492A Sprain of other ligament of left ankle, initial encounter; S93.412A Sprain of calcaneofibular ligament of left ankle, initial encounter; M25.472 Effusion, left ankle; X58.XXXA Exposure to other specified factors, initial encounter
CPT/HCPCS: 73721

== ENCOUNTER → 2024-06-18 16:36 | Outpatient (CLI) | payer MEDICARE, OTHER, SELFPAY ==
--- NOTE | 2024-06-18 16:38 | DI.MRI.S_ITS ---
PROCEDURE: MR WRIST RT WO CON INDICATIONS: PAIN IN WRIST - right TECHNIQUE: Noncontrast coronal proton density fast spin echo and T2 fast spin echo with fat saturation; coronal 3-D gradient echo, axial T1 spin echo and T2 fast spin echo with fat saturation, sagittal T1 spin echo through the wrist. COMPARISON: [facility], [place], NM BONE SCAN WHOLE BODY, 07/07/2022, 12:54. [facility] [place], CR, XR HAND 3+ VIEWS BILATERAL, 03/15/2022, 13:25. FINDINGS: Image quality: Excellent. Bones and cartilage: Again noted is severe osteoarthritic changes throughout right wrist joints. There is dorsal tilting of the lunate in relation to scaphoid with widened scapholunate interval and proximal migration of capitate suggestive of scapholunate advanced collapse. Alignment of wrist is also suggestive of dorsal intercalated segment instability. Extensive marrow edema throughout visualized carpal bones with subcortical cystic changes without discrete fracture lines. No MR evidence of avascular necrosis. No acute displaced fracture or dislocation. Carpal ligaments: There is suggestion of ruptured scapholunate ligament. The lunotriquetral ligament is thickened . No lunotriquetral ligament rupture.. In the absence of intra-articular contrast, the extrinsic carpal ligaments are not well identified. Triangular fibrocartilage complex: There is suggestion of extensive triangular fibrocartilage complex tear near its ulnar insertion. The extensor carpi ulnaris tendon is thickened at the level of ulnar styloid with intrasubstance T2 hyperintense signal. Tendons and soft tissues: The carpal tunnel structures appear normal, including the median nerve. The ulnar nerve appears normal within Guyon's canal. All six extensor tendon compartments demonstrate normal morphology, without pathologic tendon sheath fluid. No soft tissue ganglion cysts. IMPRESSION: 1. 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 2. 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 3. Edema and suggestion of erosive changes throughout carpal bones, distal radius and metacarpal basis concerning for changes related to inflammatory arthropathy. No acute fracture or dislocation. No definite MR evidence of avascular necrosis. 4. Sprain of lunotriquetral ligament without ligament rupture. 5. Suggestion of complex triangular fibrocartilage tear near its ulnar insertion. 6. Tendinosis and low-grade intrasubstance partial-thickness tear involving extensor carpi ulnaris tendon. Rest of the extensor and flexor tendons are grossly intact. Dictated by: Nabil Shultz M.D. on 06/19/2024 at 8:44 Approved by: Nabil Shultz M.D. on 06/19/2024 at 8:54
== END ==
PROVIDERS: Family Provider Family Medicine; PCP Family Medicine; Referring Provider Internal Medicine; Visit Provider Internal Medicine
DX: S63.591A Other specified sprain of right wrist, initial encounter (principal); M19.031 Primary osteoarthritis, right wrist; M25.531 Pain in right wrist; M25.532 Pain in left wrist
CPT/HCPCS: 73221